=== PATIENT | male | born 1965 | race African-American/Black ===

== ENCOUNTER 2016-12-06 04:31 | Emergency (ER) | payer SELFPAY ==
[~2016-12-06] VITALS: Ht 180.3 cm; Wt 69.0 kg
[~2016-12-06 04:31] MED LIST: Z.0.NO CURRENT MEDS
[2016-12-06 04:34] VITALS: BP 138/97; PULSE 107; RESP 22; TEMP 97.2; O2SAT 97
[2016-12-06 04:45] VITALS: BP 135/79; PULSE 96; RESP 16; O2SAT 97
[2016-12-06] MEDS ORDERED: traMADol HCL 50 MG TAB PO ONE (04:45)
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
== END 2016-12-06 06:23 | disposition home or self-care (01) ==
LOC: NEPC 04:31
DX: S30.811A Abrasion of abdominal wall, initial encounter (principal); F17.200 Nicotine dependence, unspecified, uncomplicated; W22.8XXA Striking against or struck by other objects, initial encounter; Z88.0 Allergy status to penicillin; Z88.6 Allergy status to analgesic agent
CPT/HCPCS: 71020; 99283